=== PATIENT | male | born 1980 | race Caucasian/White ===

== ENCOUNTER 2025-03-17 06:57 | Emergency (ER) | payer BC, SELFPAY ==
[2025-03-17] VITALS (9 sets, daily range): BP systolic 119–127; BP diastolic 81–101; PULSE 55–71; RESP 14–23; TEMP 36.3; O2SAT 95–98; BMI 31.0
--- NOTE | 2025-03-17 07:33 | CRLHL7_ITS ---
For Patients: As a result of the Century Cures Act, medical imaging exams and procedure reports are released immediately into your electronic medical record. You may view this report before your referring provider. If you have questions, please contact your health care provider. INDICATION: Chest pain. TECHNIQUE: Chest 2 views. COMPARISON: None. FINDINGS: Cardiovascular and mediastinum: Heart size and vasculature are normal in caliber and appearance. Lungs and pleural spaces: Lungs are clear. No sign of infiltrate or mass. No sign of pleural effusion. No pneumothorax. Bones and soft tissues: No significant findings. IMPRESSION: No acute or significant findings. Dictated by Xavier Mcgregor MD @ 03/17/2025 8:09:43 AM (Electronically Signed)
--- NOTE | 2025-03-17 07:34 | ED.CHESTPAIN ---
HPI - Chest Pain General Date Seen: 03/17/25 <Will Reddy MD - Last Filed: 03/18/25 09:42> Chief Complaint: Shortness of Breath/Dyspnea <Will Reddy MD - Last Filed: 03/18/25 09:42> Stated Complaint: Chest pain, difficulty breathing <Will Reddy MD - Last Filed: 03/18/25 09:42> Time Seen by Provider: 03/17/25 07:04 <Will Reddy MD - Last Filed: 03/18/25 09:42> Source: patient <Will Reddy MD - Last Filed: 03/18/25 09:42> Mode of arrival: ambulatory <Will Reddy MD - Last Filed: 03/18/25 09:42> Limitations: no limitations <Will Reddy MD - Last Filed: 03/18/25 09:42> History of Present Illness HPI narrative: Patient is a very nice 44-year-old gentleman who presents here with chest pain, this is been on for a few months now. He has had multiple workups in ERs for this he describes in his precordial region, with some radiation to his back, not worse when he takes a deep breath in always there not reproducible by pressure on his chest. Worse when he sits up for stands, better when he lays on his back. Has had a stress echo he says a few months ago improves all of epic, I am able to see this was in October of 2024, this was reported to be normal, with no problems at all. Denies any nausea, short shortness of breath associated with this, it is not exertional in nature to just there all the time no abdominal pain noted with this no leg discomfort, no history of DVTs. What concerns him is the fact that his father at age 31 of a massive heart attack, he does not have a history of elevated cholesterol, diabetes her hypertension any quit smoking 6 months ago. Denies any use of drugs and is a pain methamphetamine the other illicit substances. Does not drink alcohol, <Will Reddy MD - Last Filed: 03/18/25 09:42> MD complaint: chest pain <Will Reddy MD - Last Filed: 03/18/25 09:42> Prior episodes: Yes <Will Reddy MD - Last Filed: 03/18/25 09:42> Onset: during rest <Will Reddy MD - Last Filed: 03/18/25 09:42> Pain location: substernal <Will Reddy MD - Last Filed: 03/18/25 09:42> Pain radiation: none <Will Reddy MD - Last Filed: 03/18/25 09:42> Severity: moderate <Will Reddy MD - Last Filed: 03/18/25 09:42> Relieving factors: nothing <Will Reddy MD - Last Filed: 03/18/25 09:42> Exacerbating factors: nothing <Will Reddy MD - Last Filed: 03/18/25 09:42> Risk Factors Coronary artery disease risk factors: smoking history and family history of CAD before age 50 <Will Reddy MD - Last Filed: 03/18/25 09:42> Thoracic aortic dissection risk factors: none <Will Reddy MD - Last Filed: 03/18/25 09:42> Related Data Home Medications: Previous Rx's ?Medication ?Instructions ?Recorded methylprednisolone 4 mg tablets in See Rx Instructions PO .COMPLEX 03/17/25 a dose pack (Medrol (Heron)) #21 ea <Will Reddy MD - Last Filed: 03/18/25 09:42> Allergies/Adverse Reactions: Allergies Allergy/AdvReac Type Severity Reaction Status Date / Time No Known Drug Allergies Allergy Verified 03/17/25 07:05 <Will Reddy MD - Last Filed: 03/18/25 09:42> Review of Systems Status of ROS Reports: 10 or more systems reviewed and unremarkable except as noted in History and below <Will Reddy MD - Last Filed: 03/18/25 09:42> PFSH PFSH Social History: Social History Smoking Status: Former smoker How often do you have a drink containing alcohol: monthly or less AUDIT-C Alcohol total score: 1 Non-prescribed substance use: denies use <Will Reddy MD - Last Filed: 03/18/25 09:42> Exam Narrative Exam Narrative: On examination he is in no apparent distress he is pleasant alert in room 2, nontoxic pupils equal round reactive to light there is no scleral icterus redness TMs are normal oropharynx normal there is no adenopathy anterior posterior chains chest is good air entry bilaterally with no wheezing crackles noted heart sounds no clicks murmurs or gallops abdomen is soft there is no guarding no tenderness to palpation no organomegaly bowel sounds are normal, skin reveals no petechiae rashes moves all extremities independently and well. No swelling negative Homans sign neurologically <Will Reddy MD - Last Filed: 03/18/25 09:42> Const Vital Signs, click to edit/add: Vital Signs - 24 hr 03/17/25 07:02 03/17/25 07:33 03/17/25 08:59 Temperature 97.4 F L Pulse Rate 57 L Pulse Rate [Right Pulse Oximeter] 64 Respiratory Rate 16 14 Blood Pressure Blood Pressure [Left Forearm] 127/81 Pulse Oximetry 98 96 96 Oxygen Delivery Method Room Air 03/17/25 09:00 03/17/25 09:01 03/17/25 09:02 Temperature Pulse Rate 57 L 55 L 58 L Pulse Rate [Right Pulse Oximeter] Respiratory Rate 15 16 23 Blood Pressure 119/86 Blood Pressure [Left Forearm] Pulse Oximetry 96 95 96 Oxygen Delivery Method 03/17/25 09:15 03/17/25 09:30 03/17/25 09:31 Temperature Pulse Rate 60 71 69 Pulse Rate [Right Pulse Oximeter] Respiratory Rate 21 Blood Pressure 122/101 H Blood Pressure [Left Forearm] Pulse Oximetry 96 97 95 Oxygen Delivery Method <Will Reddy MD - Last Filed: 03/18/25 09:42> Vital Signs - 24 hr 03/17/25 07:02 03/17/25 07:33 03/17/25 08:59 Temperature 97.4 F L Pulse Rate 57 L Pulse Rate [Right Pulse Oximeter] 64 Respiratory Rate 16 14 Blood Pressure Blood Pressure [Left Forearm] 127/81 Pulse Oximetry 98 96 96 Oxygen Delivery Method Room Air 03/17/25 09:00 03/17/25 09:01 03/17/25 09:02 Temperature Pulse Rate 57 L 55 L 58 L Pulse Rate [Right Pulse Oximeter] Respiratory Rate 15 16 23 Blood Pressure 119/86 Blood Pressure [Left Forearm] Pulse Oximetry 96 95 96 Oxygen Delivery Method 03/17/25 09:15 03/17/25 09:30 03/17/25 09:31 Temperature Pulse Rate 60 71 69 Pulse Rate [Right Pulse Oximeter] Respiratory Rate 21 Blood Pressure 122/101 H Blood Pressure [Left Forearm] Pulse Oximetry 96 97 95 Oxygen Delivery Method <Jerman Lockwood MD - Last Filed: 03/17/25 09:42> Course Vital Signs Vital signs: Initial Vital Signs Temperature 97.4 F L 03/17/25 07:02 Temperature Source Temporal Artery Scan 03/17/25 07:02 Pulse Rate 64 03/17/25 07:02 Pulse Rhythm Regular 03/17/25 07:02 Pulse Strength 3+ Normal 03/17/25 07:02 Respiratory Rate 16 03/17/25 07:02 Blood Pressure 127/81 03/17/25 07:02 Blood Pressure Mean 96 03/17/25 07:02 Blood Pressure Position Sitting 03/17/25 07:02 Pulse Oximetry 98 03/17/25 07:02 Oxygen Delivery Method Room Air 03/17/25 07:02 Vital Signs Temperature 97.4 F L 03/17/25 07:02 Pulse Rate 64 03/17/25 07:02 Respiratory Rate 16 03/17/25 07:02 Blood Pressure 127/81 03/17/25 07:02 Pulse Oximetry 98 03/17/25 07:02 Oxygen Delivery Method Room Air 03/17/25 07:02 Temperature 97.4 F L 03/17/25 07:02 Pulse Rate 69 03/17/25 09:31 Respiratory Rate 21 03/17/25 09:15 Blood Pressure 122/101 H 03/17/25 09:31 Pulse Oximetry 95 03/17/25 09:31 Oxygen Delivery Method Room Air 03/17/25 07:02 <Will Reddy MD - Last Filed: 03/18/25 09:42> Initial Vital Signs Temperature 97.4 F L 03/17/25 07:02 Temperature Source Temporal Artery Scan 03/17/25 07:02 Pulse Rate 64 03/17/25 07:02 Pulse Rhythm Regular 03/17/25 07:02 Pulse Strength 3+ Normal 03/17/25 07:02 Respiratory Rate 16 03/17/25 07:02 Blood Pressure 127/81 03/17/25 07:02 Blood Pressure Mean 96 03/17/25 07:02 Blood Pressure Position Sitting 03/17/25 07:02 Pulse Oximetry 98 03/17/25 07:02 Oxygen Delivery Method Room Air 03/17/25 07:02 Vital Signs Temperature 97.4 F L 03/17/25 07:02 Pulse Rate 64 03/17/25 07:02 Respiratory Rate 16 03/17/25 07:02 Blood Pressure 127/81 03/17/25 07:02 Pulse Oximetry 98 03/17/25 07:02 Oxygen Delivery Method Room Air 03/17/25 07:02 Temperature 97.4 F L 03/17/25 07:02 Pulse Rate 69 03/17/25 09:31 Respiratory Rate 21 03/17/25 09:15 Blood Pressure 122/101 H 03/17/25 09:31 Pulse Oximetry 95 03/17/25 09:31 Oxygen Delivery Method Room Air 03/17/25 07:02 <Jerman Lockwood MD - Last Filed: 03/17/25 09:42> Medications Administered Medications: Discontinued Medications Generic Name Dose Route Start Last Admin Trade Name Freq PRN Reason Stop Dose Admin Aspirin 162 mg 03/17/25 09:00 03/17/25 08:52 Aspirin 81 Mg Tab.Chew PO 162 mg DAILY SANTO Administration Methylprednisolone Sodium Succinate 125 mg 03/17/25 09:37 03/17/25 09:46 Methylprednisolone Sod Succ 62.5 Mg/Ml (125) IVP 03/17/25 09:38 125 mg ONCE ONE Administration <Will Reddy MD - Last Filed: 03/18/25 09:42> Discontinued Medications Generic Name Dose Route Start Last Admin Trade Name Freq PRN Reason Stop Dose Admin Aspirin 162 mg 03/17/25 09:00 03/17/25 08:52 Aspirin 81 Mg Tab.Chew PO 162 mg DAILY SANTO Administration Methylprednisolone Sodium Succinate 125 mg 03/17/25 09:37 03/17/25 09:46 Methylprednisolone Sod Succ 62.5 Mg/Ml (125) IVP 03/17/25 09:38 125 mg ONCE ONE Administration <Jerman Lockwood MD - Last Filed: 03/17/25 09:42> MDM - Chest Pain MDM Narrative Medical decision making narrative: During the evaluation of this patient I considered multiple differential diagnosis is. The life-threatening differential diagnosis include coronary disease/DE, pulmonary embolism, pneumothorax, pneumonia, and aortic dissection. Other differential diagnosis included but were not limited to pericarditis, myocarditis, chest wall pain, GERD, esophageal rupture, rib fracture contusion, pleurisy, as well as other etiologies. <Will Reddy MD - Last Filed: 03/18/25 09:42> During the evaluation of this patient I considered multiple differential diagnosis is. The life-threatening differential diagnosis include coronary disease/DE, pulmonary embolism, pneumothorax, pneumonia, and aortic dissection. Other differential diagnosis included but were not limited to pericarditis, myocarditis, chest wall pain, GERD, esophageal rupture, rib fracture contusion, pleurisy, as well as other etiologies. Lab and imaging results returned with normal findings for this patient. The patient states that he is not worried about his heart causing these current symptoms despite having a strong family history of heart disease and sudden cardiac arrest. He attributes his current symptoms to stopping smoking which he did about 6 months ago. He states that he quit smoking and then since then has been having these pains. I advised him to increase his omeprazole dose to 40 mg daily. The patient also received an IV dose of Solu-Medrol 125 mg and a prescription for Medrol Dosepak in the event that this may provide some anti inflammatory benefit and cause symptomatic relief. I advised him to follow-up with his primary physician. The patient did take Chantix to stop smoking which caused him to have vivid dreams and have some thoughts of a actually wanting to harm his . Nevertheless if symptoms persist he may benefit from a medicine like Cymbalta for pain relief. He states that he has taken Toradol in the past without any relief. <Jerman Lockwood MD - Last Filed: 03/17/25 09:42> Medical Records Data Medical records narrative: No records here I reviewed epic <Will Reddy MD - Last Filed: 03/18/25 09:42> Lab Data Labs: Lab Results 03/17/25 03/17/25 03/17/25 Range/Units 07:33 07:50 08:52 WBC 6.17 (4.50-11.00) K/uL RBC 5.03 (4.30-5.90) m/uL Hgb 14.8 (13.5-17.5) gm/dL Hct 43.3 (37.0-53.0) % MCV 86 (80-100) fL MCH 29 (26-34) pg MCHC 34 (32-36) gm/dL RDW Coeff of Angelo 12.2 (11.5-15.5) % Plt Count 243 (140-440) K/uL Neut % (Auto) 59.0 (42.0-72.0) % Lymph % (Auto) 28.0 (20-44) % [place] % (Auto) 11.3 H (0.0-11.0) % Eos % (Auto) 1.0 (0.0-7.0) % Baso % (Auto) 0.5 (0.0-3.0) % Neut # (Auto) 3.64 (1.7-7.0) K/uL Lymph # (Auto) 1.73 (0.90-2.90) K/uL [place] # (Auto) 0.70 (0.00-0.90) K/UL Eos # (Auto) 0.06 (0.00-0.50) K/uL Baso # (Auto) 0.03 (0.00-0.30) K/uL Abs Immat Gran (auto) 0.01 (0.00-0.30) K/uL Imm/Tot Granulo (auto) 0.2 % INR 0.91 (0.91-1.10) APTT 27 (23-33) Seconds D-Dimer Quant (PE/DVT) < 0.27 (0.00-0.50) ug/ml Sodium 140 (135-149) mmol/L Potassium 3.9 (3.6-5.1) mmol/L Chloride 106 (96-114) mmol/L Carbon Dioxide 26 (20-32) mmol/L Anion Gap 8 (7-15) mEq/L BUN 14 (5-24) mg/dL Creatinine 1.0 (0.5-1.5) mg/dL Estimated Creat Clear 94.27 Estimated GFR 95 ml/min Glucose 108 (60-115) mg/dL Calcium 9.1 (8.4-10.6) mg/dL NT-Pro-B Natriuret Pep < 20 (See Note) pg/mL TSH 1.160 (0.270-4.20) uIU/mL Urine Opiates Screen Negative (Negative) Ur Oxycodone Screen Negative (Negative) Urine Methadone Screen Negative (Negative) Ur Barbiturates Screen Negative (Negative) U Tricyclic Antidepress Negative (Negative) Ur Phencyclidine Scrn Negative (Negative) Ur Amphetamines Screen Negative (Negative) U Methamphetamines Scrn Negative (Negative) U Benzodiazepines Scrn Negative (Negative) Urine Cocaine Screen Negative (Negative) U Marijuana (THC) Screen Negative (Negative) Ur Drug Screen Comment See Note POC Troponin I 0.00 L (0.01-0.04) ng/ml <Will Reddy MD - Last Filed: 03/18/25 09:42> Lab Results 03/17/25 03/17/25 03/17/25 Range/Units 07:33 07:50 08:52 WBC 6.17 (4.50-11.00) K/uL RBC 5.03 (4.30-5.90) m/uL Hgb 14.8 (13.5-17.5) gm/dL Hct 43.3 (37.0-53.0) % MCV 86 (80-100) fL MCH 29 (26-34) pg MCHC 34 (32-36) gm/dL RDW Coeff of Angelo 12.2 (11.5-15.5) % Plt Count 243 (140-440) K/uL Neut % (Auto) 59.0 (42.0-72.0) % Lymph % (Auto) 28.0 (20-44) % [place] % (Auto) 11.3 H (0.0-11.0) % Eos % (Auto) 1.0 (0.0-7.0) % Baso % (Auto) 0.5 (0.0-3.0) % Neut # (Auto) 3.64 (1.7-7.0) K/uL Lymph # (Auto) 1.73 (0.90-2.90) K/uL [place] # (Auto) 0.70 (0.00-0.90) K/UL Eos # (Auto) 0.06 (0.00-0.50) K/uL Baso # (Auto) 0.03 (0.00-0.30) K/uL Abs Immat Gran (auto) 0.01 (0.00-0.30) K/uL Imm/Tot Granulo (auto) 0.2 % INR 0.91 (0.91-1.10) APTT 27 (23-33) Seconds D-Dimer Quant (PE/DVT) < 0.27 (0.00-0.50) ug/ml Sodium 140 (135-149) mmol/L Potassium 3.9 (3.6-5.1) mmol/L Chloride 106 (96-114) mmol/L Carbon Dioxide 26 (20-32) mmol/L Anion Gap 8 (7-15) mEq/L BUN 14 (5-24) mg/dL Creatinine 1.0 (0.5-1.5) mg/dL Estimated Creat Clear 94.27 Estimated GFR 95 ml/min Glucose 108 (60-115) mg/dL Calcium 9.1 (8.4-10.6) mg/dL NT-Pro-B Natriuret Pep < 20 (See Note) pg/mL TSH 1.160 (0.270-4.20) uIU/mL Urine Opiates Screen Negative (Negative) Ur Oxycodone Screen Negative (Negative) Urine Methadone Screen Negative (Negative) Ur Barbiturates Screen Negative (Negative) U Tricyclic Antidepress Negative (Negative) Ur Phencyclidine Scrn Negative (Negative) Ur Amphetamines Screen Negative (Negative) U Methamphetamines Scrn Negative (Negative) U Benzodiazepines Scrn Negative (Negative) Urine Cocaine Screen Negative (Negative) U Marijuana (THC) Screen Negative (Negative) Ur Drug Screen Comment See Note POC Troponin I 0.00 L (0.01-0.04) ng/ml <Jerman Lockwood MD - Last Filed: 03/17/25 09:42> ECG Data Attestation: I personally reviewed and interpreted this ECG as follows: <Will Reddy MD - Last Filed: 03/18/25 09:42> ECG interpretation date: 03/17/25 <Will Reddy MD - Last Filed: 03/18/25 09:42> Prior ECG tracings: not available for review <Will Reddy MD - Last Filed: 03/18/25 09:42> Interpretation: EKG shows incomplete right bundle-branch block, sinus bradycardia, normal QRS normal QTC impression is no acute changes <Will Reddy MD - Last Filed: 03/18/25 09:42> Discharge Plan Discharge Clinical Impression: Atypical chest pain <Will Reddy MD - Last Filed: 03/18/25 09:42> Patient Disposition: Home, Self-Care <Will Reddy MD - Last Filed: 03/18/25 09:42> Condition: Stable <Will Reddy MD - Last Filed: 03/18/25 09:42> Instructions: Chest Pain (DC) <Will Reddy MD - Last Filed: 03/18/25 09:42> Additional Instructions: Okay to increase omeprazole from 20 mg daily to 40 mg daily. Take Medrol Dosepak as prescribed. Follow up with MD and consider endoscopy or other therapeutic options for symptomatic relief. Return if worsening. <Will Reddy MD - Last Filed: 03/18/25 09:42> Prescriptions: New methylprednisolone [Medrol (Heron)] 4 mg tablets,dose pack See Rx Instructions .ROUTE .COMPLEX Qty: 21 0RF Rx Instructions: orally per package directions <Will Reddy MD - Last Filed: 03/18/25 09:42> Follow Up/Referrals: Provider,Not a Local [Primary Care Provider, Family Practice] <Will Reddy MD - Last Filed: 03/18/25 09:42> Stand Alone Forms: MyHealth Info Instructions <Will Reddy MD - Last Filed: 03/18/25 09:42>
--- OUTSIDE RECORDS SUMMARY | 2025-03-17 07:45 | XMS_ITS | Clinical Summary ---
Author Organization [facility] Address [address] [place] [id number] Care Team Providers Care Business Services Assistant Name Role Phone No Ref-Primary, Physician Primary Care Provider Allergies No known active allergies Medications No known medications Social History Tobacco Use Types Packs/Day Years Used Date Smoking Tobacco: Never Assessed Sex and Gender Information Value Date Recorded Sex Assigned at Not on file Legal Sex Male 10:09 AM CDT Gender Identity Not on file Sexual Orientation Not on file Last Filed Vital Signs Vital Sign Reading Time Taken Comments Blood Pressure 129/89 07/09/2019 11:30 AM CDT Pulse 80 07/09/2019 11:30 AM CDT Temperature 36.3 C (97.4 F) 07/09/2019 10:28 AM CDT Respiratory Rate 16 07/09/2019 3:02 PM CDT Oxygen Saturation 96% 07/09/2019 10:28 AM CDT Inhaled Oxygen Concentration - - Weight 61.2 kg (135 lb) 07/09/2019 10:28 AM CDT Height 175.3 cm (5' 9) 07/09/2019 10:28 AM CDT Body Mass Index 19.94 07/09/2019 10:28 AM CDT Plan of Treatment Not on file Insurance [facility] [employer] Care Teams Business Services Assistant Relationship Specialty Start Date End Date No Ref-Primary, Physician PCP - General 07/09/19
--- OUTSIDE RECORDS SUMMARY | 2025-03-17 07:45 | XMS_ITS | Encounter Summary ---
Author Organization [facility] Address [address] [address] Phone Care Team Providers Care Accounts Receivable Accountant Name Role Phone George Mulligan DO Primary Care Provider [phone] Reason for Visit * Reason Onset Date Comments Referral 02/18/2025 Encounter Details Date Type Department Care Team (Late st Contact Info) Description 02/18/2025 Telephone [facility] [address] [place] [id number] Angelica Rose, ROTARY DRILL OPERATOR HELPER [address] [place], [place] [id number] Referral Social History Tobacco Use Types Packs/Day Years Used Date Smoking Tobacco: Former Cigarettes Passive Smoke Exposure: Current Smokeless Tobacco: Never Alcohol Use Standard Drinks/Week Comments Yes 0 (1 standard drink = 0.6 oz pur e alcohol) rarely PHQ-2 Answer Date Recorded PHQ-2 Total 0 01/27/2025 Sex and Gender Information Value Date Recorded Sex Assigned at Not on file Legal Sex Male 11:21 AM DRY KILN OPERATOR HELPER Gender Identity Not on file Sexual Orientation Not on file documented as of this encounter Functional Status * Patient's Vision Adequate to Safely Complete Daily Activities Answer Date of Assessment Author Yes 12/06/2016 11:36 AM Liz Coats RN * Patient's Memory Adequate to Safely Complete Daily Activities Answer Date of Assessment Author Yes 12/06/2016 11:36 AM Liz Coats RN documented as of this encounter Mental Status * Patient's Judgment Adequate to Safely Complete Daily Activities Answer Entry Date Author Yes 12/06/2016 11:36 AM DRY KILN OPERATOR HELPER Liz Wrne RN documented in this encounter Miscellaneous Notes * Telephone Encounter - Mehreen Knowles RN - 02/20/2025 9:37 AM CDT Returned pt's call to triage. Pt states he would like to schedule his gastroenterology appt that Angelica placed referral for. Gave pt phone number to Gastro to do that, #[phone]. Pt appreciated that call. No further needs at this time. * Telephone Encounter - Marilyn Almanza - 02/18/2025 3:36 PM CDT Patient calling regarding wanting to schedule his gastroenterology appt. Patient stated that Andrew put in a referral for this. Patient saw Angelica Rose 01-27-25 Routing to nursing for review. documented in this encounter Plan of Treatment Not on file documented as of this encounter Visit Diagnoses Not on filedocumented in this encounter Care Teams Accounts Receivable Accountant Relationship Specialty Start Date End Date George Mulligan DO [address] [place] [id number] PCP - General Family Medicine 01/27/25 documented as of this encounter
--- OUTSIDE RECORDS SUMMARY | 2025-03-17 07:45 | XMS_ITS | Clinical Summary ---
Author Organization [facility] Address [address] [address] Phone Care Team Providers Care Landscaping And Groundskeeping Laborer Name Role Phone George Mulligan DO Primary Care Provider [phone] Allergies Active Allergy Reactions Criticality Noted Date Comments Bee Venom Anaphylaxis High 05/15/2018 Dust Mite Extract Rhinitis Low 03/12/2024 Medications tiZANidine (Zanaflex) 2 MG tabletIndicatio ns:Stiff neck Take 1-2 Tablets by mouth every eight hours as needed for Muscle Spasms. 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 He has had CT scans at outside facilities most recently about a year and a half ago, has not had upper endoscopy, he does smoke, does not report any dysphagia or heartburn, no lower GI symptoms. No family history of colon cancer esophageal cancer pancreatic cancer. He does endorse a 7 pound weight loss. As such proceed with CT scan of the abdomen and pelvis with IV contrast, further studies may include EGD pending CT results. Smoking cessation. He does not drink alcohol, does not use any recreational drugs. Food does not bother with the symptoms. He had extensive workup done by his beater operator due to symptoms of posterior Cyclitis of the right eye. All his labs which included Lyme's disease, HLA-B27, syphilis, angiotensin-converting enzyme, antinuclear antibodies, CRP, ESR, hemogram, CMP, lipid panel, HIV, hepatitis C all came back within normal limit. Patient also has and the problem of anxiety and some underlying depression. He has never been on any medication. Advised him to see a behavioral health physician for the same, it is possible that anxiety and mental health may be contributing to his abdominal symptoms, he does not experience pain when he is sleeping. Resolved Problems Problem Noted Date Diagnosed Date Resolved Date Exposure to COVID-19 virus 02/08/2021 0 11/08/2022 Tinea pedis 04/08/2019 11/08/2022 Wound, open, toe, initial encounter 04/08/2019 11/08/2022 Encounters Date Type Department Care Team Description 02/18/[address] [facility] [address] [place] [address] Angelica Rose CNP Referral 01/27/2025 2:30 PM CDT Office Visit [facility] [address] [place] [address] Angelica Rose CNP Bleeding hemorrhoid (Primary Dx) 01/27/2025 Travel from Last 3 Months Immunizations Immunization Administration Dates Next Due COVID-19 mRNA Vaccine (Moderna - 18+ Yrs) 2021,12/20/2021 TD >7Yrs Preservative Free 04/08/2022 Tdap (7 years and older) 04/08/2013 Surgical History Surgery Date Site/Laterality Comments MOUTH SURGERY HAND SURGERY INGUINAL HERNIA REPAIR Family History Medical History Relation Comments Congestive Heart Failure Father No Known Problems Mother Relation Status Comments Father Mother Alive Social History Tobacco Use Types Packs/Day Years Used Date Smoking Tobacco: Former Cigarettes Passive Smoke Exposure: Current Smokeless Tobacco: Never Tobacco Cessation:Counseling Given: Not Answered Alcohol Use Standard Drinks/Week Comments Yes 0 (1 standard drink = 0.6 oz pur e alcohol) rarely PHQ-2 Answer Date Recorded PHQ-2 Total 0 01/27/2025 Sex and Gender Information Value Date Recorded Sex Assigned at Not on file 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 Gender Identity Not on file Sexual Orientation Not on file Obstetrics History Last Filed Vital Signs Vital Sign Reading Time Taken Comments Blood Pressure 137/86 01/27/2025 2:33 PM CDT Pulse 60 01/27/2025 2:33 PM CDT Temperature 35.8 C (96.4 F) 01/27/2025 2:33 PM CDT Respiratory Rate 16 01/27/2025 2:33 PM CDT Oxygen Saturation 97% 01/27/2025 2:33 PM CDT Inhaled Oxygen Concentration - - Weight 103 kg (227 lb) 01/27/2025 2:33 PM CDT Height 175.3 cm (5' 9) 03/12/2024 8:31 AM CDT Body Mass Index 33.52 03/12/2024 8:31 AM CDT Plan of Treatment Health Maintenance Due Date Last Done Comments Hepatitis B Vaccine (Standing Order) (1 of 3 - 19+ 3-dose series) 1999 TETANUS (Standing Order) 04/08/2032 022, 04/08/2013 PERTUSSIS (Standing Order) Completed 04/08/2013 HPV Vaccine (Standing Order) Aged Out No longer eligible based on patient's age to complete this topic Pneumococcal/PCV20 Vaccine: Pediatrics (2-5 yrs) and At-Risk Patients (6-49 yrs) (Standing Order) Aged Out No longer eligible b ased on patient's age to complete this topic [place] [address] [address] [place] [id number] [facility] Care Teams Landscaping And Groundskeeping Laborer Relationship Specialty Start Date End Date George Mulligan DO [facility] [employer] [facility] [place] [address] PCP - General Family Medicine 01/27/25
--- OUTSIDE RECORDS SUMMARY | 2025-03-17 07:45 | XMS_ITS | Clinical Summary ---
Author Organization [facility] Address [address] [place] [address] Care Team Providers Care Retail Sales Manager Name Role Phone Unavailable Primary Care Provider Unavailabl e Source Comments You are receiving this document as you are listed as the primary care provider,follow-up provider, or the patient has been referred to you for consultation.This is in compliance with the Medicare and[facility] System[facility] EHR Incentive Program,which states Providers who transition their patient to another setting of careor provider of care or refers their patient to another provider of care shouldprovide summary care record for each transition of care or referral. [facility] Allergies No known active allergies Medications Psyllium (METAMUCIL SMOOTH TEXTURE OR) Active busPIRone (BUSPAR) 10 MG tablet Take 1 Tablet (10 mg) by mouth two times a day. 30 Tablet 08/12/2022 Active ketorolac (ACULAR) 0.5 % eye drop solution Place 1 Drop into right eye 4 times a day. 12/28/2022 Active prednisoLONE acetate (PRED FORTE) 1 % eye drop suspension Place 1 Drop into right eye 4 times a day. 12/28/2022 Active Active Problems Problem Noted Date Diagnosed Date Tobacco abuse 03/31/2016 Immunizations Immunization Administration Dates Next Due Moderna Monovalent 12+ 01/16/2022,12/20/2021 Tdap 04/08/2013 Family History Medical History Relation Name Comments Heart Disease Father [place] High Blood Pressure Father High Cholesterol Father Alcohol/Drug Abuse Brother Alcohol Amblyopia/Strabismus Negative Family History Blindness Negative Family History Cataract Negative Family History Diabetes Negative Family History Glaucoma Negative Family History Macular Degeneration Negative Family History Migraines Negative Family History Retinal Detachment Negative Family History Relation Name Status Comments Father (Age 32) [place] Mother Alive Brother Alive Maternal Grandfather Maternal Grandmother Paternal Grandfather Paternal Grandmother Sister 1 Alive Sister 2 Alive Social History Tobacco Use Types Packs/Day Years Used Date Smoking Tobacco: Every Day Cigarettes 1 28 Started: 10/09/1990; Last attempted to quit: 10/03/2018 Smokeless Tobacco: Never Alcohol Use Standard Drinks/Week Comments Not Currently 0 (1 standard drink = 0.6 oz pur e alcohol) PHQ-2 Answer Date Recorded PHQ-2 Score 1 04/16/2022 Sex and Gender Information Value Date Recorded Sex Assigned at Not on file Legal Sex Male 10:27 AM CDT Gender Identity Not on file Sexual Orientation Not on file 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 Not on file Not on file Not o n file Last Filed Vital Signs Vital Sign Reading Time Taken Comments Blood Pressure 128/85 02/10/2023 10:33 AM CDT Pulse 74 02/10/2023 10:33 AM CDT Temperature 36.3 C (97.4 F) 10/31/2018 8:59 AM BRONZE PLATER Respiratory Rate 16 02/10/2023 10:33 AM CDT Oxygen Saturation 98% 02/10/2023 10:33 AM CDT Inhaled Oxygen Concentration - - Weight 94.9 kg (209 lb 3.2 oz) 02/10/2023 10:33 AM CDT Height 174.8 cm (5' 8.8) 02/10/2023 10:33 AM CD T Body Mass Index 31.07 02/10/2023 10:33 AM CDT Plan of Treatment Health Maintenance Due Date Last Done Comments HepB Vaccine (1) 1999 Pneumococcal Vaccine (1 of 2 - PCV) 1999 DTaP/Tdap/Td Vaccine (2 - Tdap) 04/08/2023 04/08/2013 COVID-19 Vaccine (3 - 2023-2 5 season) 2024 01/16/2022, 12/20/2021 Adult Preventive Visit 02/10/2025 , 04/16/2022 Influenza Vaccine (Season Ended) 2025 Cholesterol 02/11/2028 02/10/2023, 04/16/2022, 11/16/2016 Zoster/Shingles Vaccine (1 o f 2) 2030 HIV Screening (Preventive Services) Completed 04/16/2022 Hep C Screening (Preventive Services) Completed 04/16/2022 HPV Vaccine Aged Out No longer eligi ble based on patient's age to complete this topic HepA Vaccine Aged Out No longer eligi ble based on patient's age to complete this topic Hib Vaccine Aged Out No longer eligi ble based on patient's age to complete this topic IPV (Polio) Vaccine Aged Out No longe r eligible based on patient's age to complete this topic MCV4 Vaccine Aged Out No longer eligi ble based on patient's age to complete this topic Meningococcal B Vaccine Aged Out No l onger eligible based on patient's age to complete this topic Procedures Procedure Name Priority Date/Time Associated Diagnosis Comments LIPID PANEL & DIRECT LDL (IF NEEDED) Routine 02/10/2023 10:57 AM CDT Screening for lipid disorders HIV 1/2 AG/AB 4TH GEN Routine 04/16/2022 11:28 AM CDT Screening for HIV (human immunodeficiency virus) HEPATITIS C ANTIBODY, WITH REFLEX (ANTI-HCV) Routine 04/16/2022 11:28 AM CDT Need for hepatitis C screening test from Last 3 Months or Most Recently Relevant to Health Maintenance Results * (ABNORMAL) Lipid Panel and Direct LDL(If Needed) (02/10/2023 10:57 AM CDT) Cholesterol 180 0 - 199 mg/dL 02/10/2023 5:50 PM CDT [facility] Triglyceride 138 <=149 mg/dL 02/10/2023 5:50 PM CDT [facility] HDL Cholesterol 33(L) >=40 mg/dL 02/10/2023 5:50 PM CDT [facility] LDL, Calculated 119 <130 mg/dL 02/10/2023 5:50 PM CDT [facility] Non HDL Chol, Calculated 147 <=159 mg/dL 02/10/2023 5:50 PM CDT [facility] Cholesterol/HDL Ratio 5.5 02/10/2023 5:50 PM CDT [facility] Hours Fasting 12 02/10/2023 5:50 PM CDT [facility] Blood Venipuncture / Unknown 02/10/2023 10:57 AM CDT 02/10/2023 10:58 AM CDT us Imani Day APRN, CNP LAB_1 Final Result Performing Organization Address [facility] Co de Phone Number [facility] [address] [address], [facility] [phone] [facility] [address] [place] [address], [facility] [phone] * HIV 1/2 Ag/Ab 4th Generation (04/16/2022 11:28 AM CDT) Pathologist [facility] HIV 1/2 Antigen/Anti body (4th generation) Negative (Non Reactive) Negative (Non Reactive) 04/18/2022 1:09 PM CDT [facility] Comment:HIV-1 p24 Antigen an d HIV-1/HIV-2 Antibody not detected Blood Venipuncture / Unknown 04/16/2022 11:28 AM CDT 04/16/2022 11:28 AM CDT us Eileen Saenz PA-C LAB_1 Final Result Performing Organization Address [facility] Co de Phone Number [facility] [address] [address], [facility] [phone] * Hepatitis C Antibody, with Reflex (04/16/2022 11:28 AM CDT) Hepatitis C Antibody Negative (Non Reactive) Negative (Non Reactive) 04/18/2022 4:03 PM CDT [facility] Comment:Antibodies to HCV no t detected. Does not exclude the possiblity of exposure to HCV. Blood Venipuncture / Unknown 04/16/2022 11:28 AM CDT 04/16/2022 11:28 AM CDT Eileen Saenz PA-C LAB_1 Final Result [facility] [address] [place] [address], [facility] from Last 3 Months or Most Recently Relevant to Health Maintenance Insurance [facility] [employer] [facility] [employer]
--- OUTSIDE RECORDS SUMMARY | 2025-03-17 07:46 | XMS_ITS | Clinical Summary ---
Author Organization [facility] Address [address] [place] [address] Care Team Providers Care Family Readiness Support Assistant Name Role Phone None Reported, Pcp Primary Care Provider Unavail able Source Comments Patient records contain information from all sites at [facility]. For routine questions regarding patient records, call [phone] during business hours, M-F 8:00 AM - 5:00 PM Central Time. Record requests for emergency care only can be directed to [phone] at any time.[facility] Allergies Active Allergy Reactions Criticality Noted Date Comments Venom-Honey Bee Anaphylaxis High 05/15/2018 Medications * This document contains information received from the source organization and may not represent a complete record from that organization. No known medications Active Problems No known active problems Social History Tobacco Use Types Packs/Day Years Used Date Smoking Tobacco: Every Day Cigarettes Smokeless Tobacco: Never Tobacco Cessation:Ready to Q uit: Not Asked; Counseling Given: Not Answered Comments:less than a pack a day. 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 Gender Identity Not on file Sexual Orientation Not on file Last Filed Vital Signs Vital Sign Reading Time Taken Comments Blood Pressure 110/77 09/09/2024 11:15 AM AUTOMATIC GRINDER OPERATOR Pulse 59 09/09/2024 11:25 AM AUTOMATIC GRINDER OPERATOR Temperature 36.7 C (98.1 F) 09/09/2024 10:34 AM AUTOMATIC GRINDER OPERATOR Respiratory Rate 17 09/09/2024 11:30 AM AUTOMATIC GRINDER OPERATOR Oxygen Saturation 94% 09/09/2024 11:25 AM AUTOMATIC GRINDER OPERATOR Inhaled Oxygen Concentration - - Weight 99 kg (218 lb 4.1 oz) 09/09/2024 10:35 AM AUTOMATIC GRINDER OPERATOR Height 175.3 cm (5' 9) 09/09/2024 10:35 AM AUTOMATIC GRINDER OPERATOR Body Mass Index 32.23 09/09/2024 10:35 AM AUTOMATIC GRINDER OPERATOR Plan of Treatment Health Maintenance Due Date Last Done Comments HIV Screening 1980 Hepatitis C Screening 1980 Lipid (Cholesterol) Screening 1980 Tobacco Cessation counseling 1980 Hepatitis B Vaccines (1 of 3 - 19+ 3-dose series) 1999 Pneumococcal vaccine (0-49 years) (1 of 2 - PCV) 1999 COVID-19 Vaccine (3 - 2023-2 5 season) 2024 01/16/2022, 12/20/2021 Influenza Vaccine (#1) 2024 Depression Screening (Annual PHQ-2) 10/09/2024 DTaP,Tdap,and Td Vaccines (3 - Td or Tdap) 04/08/2032 04/08/2022, 04/08/2013 HPV Vaccines Aged Out No longer eligi ble based on patient's age to complete this topic IPV Vaccines Aged Out No longer eligi ble based on patient's age to complete this topic Insurance [email or web address] Care Teams Family Readiness Support Assistant Relationship Specialty Start Date End Date None Reported, Pcp PCP - General Family Medicine 09/09/24
--- OUTSIDE RECORDS SUMMARY | 2025-03-17 07:46 | XMS_ITS | Clinical Summary ---
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 Gender Identity Not on file Sexual Orientation Not on file Obstetrics History Last Filed Vital Signs Vital Sign Reading Time Taken Comments Blood Pressure 120/73 05/04/2021 7:19 PM CDT Pulse 61 05/04/2021 7:19 PM CDT Temperature 36.3 C (97.4 F) 05/04/2021 3:48 PM CDT Respiratory Rate 18 05/04/2021 7:19 PM CDT Oxygen Saturation 98% 05/04/2021 7:19 PM CDT Inhaled Oxygen Concentration - - Weight 95.4 kg (210 lb 6.4 oz) 05/04/2021 3:48 P M CDT Height 172.7 cm (5' 8) 05/04/2021 3:48 PM CDT Body Mass Index 31.99 05/04/2021 3:48 PM CDT Plan of Treatment Health Maintenance Due Date Last Done Comments Tdap 1991 Depression screening for age 12+ 1992 HIV for age 15-65 1995 BMI (ht and wt on same day) for age 18+ 1998 Hepatitis C screening for ag e 18-79 1998 Hepatitis B series for 19+ ( 1 of 3 - 19+ 3-dose series) 1999 Tetanus booster 2000 Lipids for age 35-44 2015 COVID-19 vaccine series ( - 2023- season) 2024 01/16/2022, 12/20/2021 Influenza Vaccine (Season Ended) 2025 Pneumococcal series for age 6-49 Aged Out No longer eligible b ased on patient's age to complete this topic Insurance [facility] [employer] Care Teams Donkey Engine Firer/Fireman Relationship Specialty Start Date End Date Pcp, No . PCP - General 09/29/21
[2025-03-17 08:00] LABS: Basophils Absolute Auto 0.03 K/uL (0.00-0.30); Basophils Percent Auto 0.5 % (0.0-3.0); Eosinophils Absolute Auto 0.06 K/uL (0.00-0.50); Hematocrit 43.3 % (37.0-53.0); Hemoglobin* 14.8 gm/dL (13.5-17.5); Immature Granulocytes Abs Auto 0.01 K/uL (0.00-0.30); Immature Granulocytes Pct Auto 0.2 %; Lymphocytes Absolute Auto 1.73 K/uL (0.90-2.90); Mean Corpuscular HGB Conc 34 gm/dL (32-36); Mean Corpuscular Hemoglobin 29 pg (26-34); Mean Corpuscular Volume 86 fL (80-100); Monocytes Percent Auto 11.3 % (0.0-11.0); Neutrophils Absolute Auto 3.64 K/uL (1.7-7.0); Platelet Count* 243 K/uL (140-440); RDW Coefficient of Variation % 12.2 % (11.5-15.5); Red Blood Count 5.03 m/uL (4.30-5.90); White Blood Count* 6.17 K/uL (4.50-11.00)
[2025-03-17 08:01] LABS: Slide Review Reflex No
[2025-03-17 08:18] LABS: INR 0.91 (0.91-1.10); Partial Thromboplastin Time* 27 Seconds (23-33); Prothrombin Time 13.1 Seconds
[2025-03-17 08:27] LABS: Chloride* 106 mmol/L (96-114); Potassium* 3.9 mmol/L (3.6-5.1); Sodium* 140 mmol/L (135-149)
[2025-03-17 08:28] LABS: D Dimer Quantitative* < 0.27 ug/ml (0.00-0.50)
[2025-03-17 08:30] LABS: Anion Gap 8 mEq/L (7-15); Blood Urea Nitrogen* 14 mg/dL (5-24); Calcium* 9.1 mg/dL (8.4-10.6); Carbon Dioxide* 26 mmol/L (20-32); Est. Creatinine Clearance* 94.27; Estimated Glomerular Filt Rate 95 ml/min; Glucose* 108 mg/dL (60-115)
[2025-03-17 08:47] LABS: NT Pro B Type NatriureticPept* < 20 pg/mL (See Note)
[2025-03-17] MEDS: ASPIRIN 81 MG TAB.CHEW 162 MG PO (08:52)
[2025-03-17 09:08] LABS: Amphetamine Screen Urine Negative (Negative); Barbiturate Screen Urine Negative (Negative); Benzodiazepines Screen Urine Negative (Negative); Cannabinoid Screen Urine Negative (Negative); Cocaine Screen Urine Negative (Negative); Methadone Screen Urine Negative (Negative); Methamphetamines Screen Urine Negative (Negative); Opiate Screen Urine Negative (Negative); Oxycodone Screen Urine Negative (Negative); Phencyclidine Screen Urine Negative (Negative); Tricyclic Antidepressant Urine Negative (Negative)
[2025-03-17] MEDS: METHYLPREDNISOLONE SOD SUCC 62.5 MG/ML (125) 125 MG IVP (09:46)
== END 2025-03-17 09:57 | disposition home or self-care (01) ==
PROVIDERS: Emergency Provider Family Medicine
DX: R07.9 Chest pain, unspecified (principal)
CPT/HCPCS: 36415; 71046; 80048; 80306; 83880; 84443; 84484; 85025; 85379; 85610; 85730; 93005; 94761; 96374; 99284; 99285; A9270; J2919